=== PATIENT | male | born 1995 | race Caucasian/White ===

== ENCOUNTER 2019-06-20 02:46 | Emergency (ER) | payer SELFPAY | END 2019-06-20 03:35 | disposition left against medical advice (07) | LOC: E/R 02:46 | DX: F15.129 Other stimulant abuse with intoxication, unspecified (principal); F10.920 Alcohol use, unspecified with intoxication, uncomplicated; R00.0 Tachycardia, unspecified; R40.2142 Coma scale, eyes open, spontaneous, at arrival to emergency department; R40.2252 Coma scale, best verbal response, oriented, at arrival to emergency department; R40.2362 Coma scale, best motor response, obeys commands, at arrival to emergency department; F17.210 Nicotine dependence, cigarettes, uncomplicated; Z59.0 Homelessness | CPT/HCPCS: 99282 ==